=== PATIENT | female | born 1965 | race Caucasian/White ===

== ENCOUNTER 2021-08-10 11:59 | Outpatient (CLI) | payer OTHER | END 2021-08-10 12:00 | disposition home or self-care (01) | LOC: CSHMRI 11:59 | PROVIDERS: ATTEND Family Medicine | DX: S99.912D Unspecified injury of left ankle, subsequent encounter (principal); Q66.89 Other specified congenital deformities of feet; Q78.8 Other specified osteochondrodysplasias ==